=== PATIENT | female | born 1975 ===

== ENCOUNTER 2020-08-01 19:04 | Emergency (ER) | payer SELFPAY ==
[2020-08-01 19:12] VITALS: BP 146/86; Wt 68.2 kg
[2020-08-01] MEDS ORDERED: HYDROCODON-ACE1 EAC7 PO (20:29)
== END 2020-08-01 21:21 | disposition home or self-care (01) ==
LOC: D.ER 19:04
DX: S05.01XA Injury of conjunctiva and corneal abrasion without foreign body, right eye, initial encounter (principal); S00.83XA Contusion of other part of head, initial encounter; S02.2XXA Fracture of nasal bones, initial encounter for closed fracture; T14.8XXA Other injury of unspecified body region, initial encounter; V89.2XXA Person injured in unspecified motor-vehicle accident, traffic, initial encounter; Y93.9 Activity, unspecified; Y92.9 Unspecified place or not applicable